=== PATIENT | male | born 1980 | race Caucasian/White ===

== ENCOUNTER 2016-06-23 09:40 | Emergency (ER) | payer SELFPAY ==
[~2016-06-23] VITALS: Ht 180.3 cm; Wt 74.8 kg
[2016-06-23 16:33] VITALS: BP 114/82
[2016-06-23] MEDS ORDERED: SODIUM CHLORIDE 0.9% 1,000 ML IVB ONE (17:37)
[2016-06-23] MEDS ORDERED: NALBUPHINE HCL 10 MG/1ml INJECTION IV ONE (17:45)
[2016-06-23] MEDS ORDERED: PROMETHAZINE HCL 25 MG/ML 1ML IV ONE (17:45)
== END 2016-06-23 17:44 | disposition home or self-care (01) ==
LOC: ER 09:47 → EDSEX 09:47 → ER 17:44
DX: R10.9 Unspecified abdominal pain (principal); Z59.0 Homelessness; F17.210 Nicotine dependence, cigarettes, uncomplicated; F15.10 Other stimulant abuse, uncomplicated

== ENCOUNTER 2018-01-21 18:28 | Emergency (ER) | payer MEDICAID, OTHER ==
[~2018-01-21] VITALS: Ht 167.6 cm; Wt 62.6 kg
[2018-01-21 20:04] LABS: Basophils # (auto) 0 uL; Basophils % (auto) 0.2 % (0.0-2.0); Eosinophils # (auto) 0 uL; Eosinophils % (auto) 0.5 % (0.0-7.0); Hematocrit 43.8 % (41.0-53.0); Hemoglobin 14.6 g/dL (13.5-17.5); Lymphocytes # (auto) 1.2 uL; Lymphocytes % (auto) 16.8 % (10.0-50.0); Mean Corpuscular Hemoglobin 31.3 pg (28.0-32.0); Mean Corpuscular Hgb Conc. 33.2 g/dL (32.0-36.0); Mean Corpuscular Volume 94.3 fL (80.0-100.0); Monocytes # (auto) 0.6 uL; Monocytes % (auto) 8.6 % (0.0-12.0); Neutrophils # (auto) 5.1 uL; Neutrophils % (auto) 73.9 % (37.0-80.0); Platelet Count (auto) 238 10^3/uL (140-450); Red Blood Cells 4.65 10^6/uL (4.5-5.90); Red Cell Distribution Width 13.1 % (11.8-14.3); White Blood Cell 6.9 10^3/uL (4.4-10.8)
[2018-01-21 20:22] LABS: Albumin 4.2 g/dL (3.4-5.0); BUN/Creatinine Ratio 10.8; Bilirubin, Total 0.8 mg/dL (0.2-1.0); Calcium 8.3 mg/dL (8.5-10.1); Potassium 3.7 mmol/L (3.5-5.1); Total Protein 7.7 g/dL (6.4-8.2)
[2018-01-21 20:38] LABS: Acetaminophen < 2.0 ug/mL (10-30)
[2018-01-21 21:53] LABS: Alcohol, Urine < 3.0 mg/dL (0-5); Amphetamine Screen, Urine POSITIVE (NEGATIVE); Barbiturate Scree,Urine NEGATIVE (NEGATIVE); Benzodiazephine Screen, Urine NEGATIVE (NEGATIVE); Cannabinoid Screen, Urine POSITIVE (NEGATIVE); Cocaine Screen, Urine NEGATIVE (NEGATIVE); Opiate Scree,Urine NEGATIVE (NEGATIVE); Phencyclidine Screen, Urine NEGATIVE (NEGATIVE)
[2018-01-21 21:54] LABS: Urine Bacteria NONE SEEN /hpf (None Seen); Urine Blood Negative /uL (Negative); Urine Mucus FEW (None Seen); Urine Specific Gravity 1.033 (1.001-1.035); Urine WBC 3 /hpf (0 - 3)
[2018-01-22] MEDS ORDERED: LORazepam 0.5 MG TAB PO ONE (18:00)
[2018-01-22] MEDS ORDERED: OLANZapine 5 MG TAB PO ONE (18:00)
[2018-01-23] MEDS ORDERED: LORazepam 2MG/ML-1ML VIAL ONE (11:40)
[2018-01-23] MEDS ORDERED: LORazepam 2MG/ML-1ML VIAL IM ONE ×2 (12:00)
[2018-01-24] MEDS ORDERED: LORazepam 2MG/ML-1ML VIAL IM ONE (08:45)
[2018-01-24] MEDS ORDERED: LORazepam 2MG/ML-1ML VIAL IV ONE (09:15)
[2018-01-25] MEDS ORDERED: LORazepam 0.5 MG TAB PO ONE ×2 (12:15→21:15)
[2018-01-26 08:39] VITALS: BP 95/49
== END 2018-01-26 14:46 | disposition home or self-care (01) ==
LOC: ER 18:28
DX: R45.851 Suicidal ideations (principal); F20.9 Schizophrenia, unspecified; F29 Unspecified psychosis not due to a substance or known physiological condition; G92 Toxic encephalopathy; F19.10 Other psychoactive substance abuse, uncomplicated; Z59.0 Homelessness
CPT/HCPCS: 36415; 80053; 80307; 80329; 81001; 85025; 96372; 96374; 99284; J2060

== ENCOUNTER 2020-04-18 06:00 | Emergency (ER) | payer MEDICAID ==
[~2020-04-18] VITALS: Ht 180.3 cm; Wt 63.5 kg
[2020-04-18 06:27] VITALS: BP 142/92
== END 2020-04-18 06:39 | disposition left against medical advice (07) ==
LOC: ER 06:00 → EDBD 06:00 → ER 06:39
DX: F19.90 Other psychoactive substance use, unspecified, uncomplicated (principal); Z53.21 Procedure and treatment not carried out due to patient leaving prior to being seen by health care provider